=== PATIENT | male | born 1960 | race Caucasian/White ===

== ENCOUNTER → 2017-08-21 | Outpatient (CLI) | payer OTHER ==
--- NOTE | 2017-08-21 10:10 | CTL ---
EXAMINATION TYPE: CT Low Dose Lung DATE OF EXAM ORDERED: 08/21/2017 HISTORY: Personal history of tobacco abuse. Lung cancer screening CT DLP: [address] CTDI: 2.41 mGy Automated exposure control for dose reduction was used. SCREENING VISIT: First COMPARISON: None TECHNIQUE: Low dose computed tomography scan was performed through the chest at 1 mm thick sections a nd reconstructed images in the coronal plane at [address] DIAGNOSTIC QUALITY: Satisfactory FINDINGS: LUNG NODULES: None. Left a nodule with a size of 2.5 mm. Nodule Type: Solid on image # CT Image slide number 33. Left a nodule with a size of 4.0 mm. Nodule Type: Solid on image # CT Image slide number [id number]. There a re probable peripheral punctate calcifications within this nodule although calcifications are not def initively seen on soft tissue windows. Left a nodule with a size of 4.5 mm. Nodule Type: Solid and calcified on image # CT Image slide numbe r 84. This is a benign finding. Left a nodule with a size of 4.0 mm. Nodule Type: Solid and calcified on image # CT Image slide numbe r 65. This is a benign finding. Right a nodule with a size of 3.5 mm. Nodule Type: Solid and partially calcified on image # CT Image slide number 142. This is a likely a benign finding. LUNGS: COPD: Severity: Mild centrilobular Fibrosis: Severity: None Lymph nodes: None RIGHT PLEURAL SPACE: Effusion: None Calcification: None Thickening: None Pneumothorax: None LEFT PLEURAL SPACE: Effusion: None Calcification: None Thickening: None Pneumothorax: None HEART: Heart Size: Normal Coronary calcification: Punctate calcification at the ostia of the left main coronary artery on image 26 of series 3. Pericardial effusion: None OTHER FINDINGS: Upper abdomen: Limited but unremarkable Bony thorax: Multilevel moderate degenerative changes of the thoracic spine are present. Supraclavicular region: No adenopathy IMPRESSION: Multiple subcentimeter pulmonary nodules. Some of these are calcified and represent benig n granulomas. These are lung LUNG-RAD 2-benign appearance or behavior-nodules with a very low likelih ood of becoming a clinically active cancer due to size. Continued annual screening with low dose CT i n 12 months is recommended. FOLLOW UP CT CHEST RECOMMENDATION: Continued annual screening with low dose CT in [address] LUNG RAD: 2
== END | disposition home or self-care (01) ==
LOC: RADCTMAIN 08:53
PROVIDERS: ATTEND Family Medicine
DX: Z12.2 Encounter for screening for malignant neoplasm of respiratory organs (principal); R91.8 Other nonspecific abnormal finding of lung field; Z87.891 Personal history of nicotine dependence

== ENCOUNTER → 2017-12-10 | Outpatient (CLI) | payer OTHER ==
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
== END | disposition home or self-care (01) ==
LOC: RADXRYALE 16:27
PROVIDERS: ATTEND Physician Assistant Medical
DX: S22.42XA Multiple fractures of ribs, left side, initial encounter for closed fracture (principal)

== ENCOUNTER → 2018-02-14 | Outpatient (CLI) | payer OTHER ==
--- NOTE | 2018-02-14 09:23 | US ---
EXAMINATION TYPE: US abdomen limited DATE OF EXAM: 02/14/2018 COMPARISON: NONE CLINICAL HISTORY: R74.0 Nonspecific elevation of levels of.... EXAM MEASUREMENTS: Liver Length: 18.7 cm Gallbladder Wall: 0.2 cm CBD: 0.6 cm Right Kidney: 11.4 x 5.1 x 5.9 cm Pancreas: Obscured by bowel gas Liver: Enlarged. Increased attenuation, decreased visualization of vessels suggestive of fatty infilt rate Gallbladder: wnl Evidence for sonographic Mcneal's sign: No CBD: Measuring upper limits of normal Right Kidney: No hydronephrosis or masses seen IMPRESSION: 1. Hepatomegaly with underlying fatty hepatic infiltration.
== END | disposition home or self-care (01) ==
LOC: RADUSWWP 08:45
PROVIDERS: ATTEND Family Medicine
DX: K76.0 Fatty (change of) liver, not elsewhere classified (principal); R16.0 Hepatomegaly, not elsewhere classified
CPT/HCPCS: 76705

== ENCOUNTER → 2022-10-23 | Outpatient (CLI) | payer OTHER ==
--- NOTE | 2022-10-24 08:38 | XR ---
EXAMINATION TYPE: XR ribs RT w pa chest xray DATE OF EXAM: 10/23/2022 COMPARISON: 12/10/2017 TECHNIQUE: Frontal view of the chest 4 views of the right ribs are submitted. HISTORY: Pain FINDINGS: The lungs are clear and there is no pneumothorax, pleural effusion, or focal pneumonia. Heart size normal and no overt failure. Atherosclerotic change aorta. Rib cage is intact. IMPRESSION: 1. No acute displaced rib fracture.
== END | disposition home or self-care (01) ==
LOC: RADXRYALE 15:47
PROVIDERS: ATTEND Physician Assistant Medical
DX: R07.82 Intercostal pain (principal)

== ENCOUNTER → 2022-11-22 | Outpatient (CLI) | payer OTHER ==
--- NOTE | 2022-11-23 09:29 | XR ---
EXAMINATION TYPE: XR abdomen 2V DATE OF EXAM: 11/22/2022 COMPARISON: 10/08/2012 HISTORY: Pain TECHNIQUE: One view abdominal series FINDINGS: The osseous structures are intact. The bowel gas pattern is nonspecific. Bilateral hip arthropathy a nd degenerative changes in the spine. Soft tissue ossifications overlying the pelvis are again noted on prior exam. Elevated left hemidiaphragm incidentally noted. IMPRESSION: 1. Nonspecific abdomen. Occasional air-fluid level in the right abdomen. Could be on the basis of a localized ileus or enteritis correlate clinically.
== END | disposition home or self-care (01) ==
LOC: RADXRYALE 16:29
PROVIDERS: ATTEND Physician Assistant
DX: R11.2 Nausea with vomiting, unspecified (principal); R10.9 Unspecified abdominal pain; G89.4 Chronic pain syndrome; E11.65 Type 2 diabetes mellitus with hyperglycemia; F32.9 Major depressive disorder, single episode, unspecified; F41.1 Generalized anxiety disorder
CPT/HCPCS: 74019

== ENCOUNTER → 2023-05-29 | Outpatient (CLI) | payer OTHER ==
--- NOTE | 2023-05-29 17:13 | US ---
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 Indirect Doppler criteria was utilized. FINDINGS: EXAM MEASUREMENTS: RIGHT: Peak Systolic Velocity (PSV) cm/sec ----- Right CCA: 70.2 ----- Right ICA: 112 ----- Right ECA: 294 ICA/CCA ratio: 1.6 RIGHT: End Diastole cm/sec ----- Right CCA: 25.3 ----- Right ICA: 52.0 ----- Right ECA: 38.1 LEFT: Peak Systolic Velocity (PSV) cm/sec ----- Left CCA: 93.0 ----- Left ICA: 110 ----- Left ECA: 156 ICA/CCA ratio: 1.2 LEFT: End Diastole cm/sec ----- Left CCA: 24.1 ----- Left ICA: 44.0 ----- Left ECA: 24.1 VERTEBRALS (direction of flow): Right Vertebral: Antegrade Left Vertebral: Antegrade Rhythm: Normal DEPUTY [employer] NOTES: Heterogeneous plaque bilaterally, elevated velocities bilateral ECA's IMPRESSION: Atheromatous plaquing is present without significant flow-limiting stenosis within the internal carot id arteries. Note is made of bilateral external carotid artery stenosis with increased velocity. Criteria for Assigning % of Stenosis / Diameter reduction (Estimation based on the indirect measurements of the internal carotid artery velocities (ICA PSV). 1. Normal (no stenosis)=ICA PSV < 125 cm/s: ratio < 2.0: ICA EDV<40 cm/s. 2. Less than 50% stenosis=ICA PSV < 125 cm/s: ratio < 2.0: ICA EDV<40 cm/s. 3. 50 to 69% stenosis=ICA PSV of 125 to 230 cm/s: ration 2.0 ? 4.0: ICA EDV 40-100 cm/s. 4. Greater than 70% stenosis to near occlusion= ICA PSV > 230 cm/s: ratio > 4.0: ICA EDV > 100 cm/s. 5. Near occlusion= ICA PSV velocities may be low or undetectable: variable ratio and ICA EDV. 6. Total occlusion=unable to detect flow.
== END | disposition home or self-care (01) ==
LOC: RADUSWWP 15:06
PROVIDERS: ATTEND Family Medicine
DX: I65.23 Occlusion and stenosis of bilateral carotid arteries (principal); I10 Essential (primary) hypertension; I69.911 Memory deficit following unspecified cerebrovascular disease
CPT/HCPCS: 93880